=== PATIENT | male | born 1945 | race Caucasian/White ===

== ENCOUNTER 2017-11-30 10:22 | Outpatient (CLI) | payer MEDICARE ==
[2017-11-30 11:12] LABS: #Basophils 0.1 thou/uL (0.0-0.2); #Eosinphils 0.2 thou/uL (0.0-0.7); #Lymphocytes 1.2 thou/uL (1.20-3.40); #Monocytes 0.8 thou/uL (0.11-0.59); #Neutrophils 4.8 thou/uL (1.40-6.50); %Basophils 1.2 % (0.0-1.0); %Eosinophils 2.6 % (0.0-10.0); %Lymphocytes 17.4 % (21.0-51.0); %Monocytes 10.8 % (0.0-10.0); Hemoglobin 15.9 g/dL (14.0-18.0); Mean Corpuscular Hemoglobin 33.5 pg (27.0-31.0); Mean Platelet Volume 7.6 fL (7.4-10.4); Platelet Count 177 thou/uL (130-400); RBC Distribution Width 12.7 % (11.5-14.5); Red Blood Cell (RBC) Count 4.76 mill/uL (4.70-6.10)
[2017-11-30 11:39] LABS: Anion Gap 14 mmol/L (10-20); BUN (Urea Nitrogen) 15 mg/dL (8.4-25.7); Calc. Creatinine Clearance 0 mL/min (70-130); Calcium 9.8 mg/dL (7.8-10.44); Carbon Dioxide 25 mmol/L (23-31); Chloride 102 mmol/L (98-107); Estimated GFR-MDRD 85; Glucose 140 mg/dL (80-115); Sodium 137 mmol/L (136-145)
--- NOTE | 2017-12-02 08:32 | EKG ---
Test Reason : Blood Pressure : / mmHG Vent. Rate : 058 BPM Atrial Rate : 058 BPM P-R Int : 190 ms QRS Dur : 104 ms QT Int : 404 ms P-R-T Axes : 052 -21 023 degrees QTc Int : 396 ms Sinus bradycardia Otherwise normal ECG When compared with ECG of 15-JUN-2015 11:07, No significant change was found Confirmed by TANVI KERR ([id number]) on 12/02/2017 8:31:46 AM Referred By: JOANA Confirmed By:TANVI KERR
== END 2017-11-30 10:23 | disposition home or self-care (01) ==
LOC: LABBT 10:22
PROVIDERS: ATTEND Orthopaedic Surgery
DX: Z01.818 Encounter for other preprocedural examination (principal); M75.102 Unspecified rotator cuff tear or rupture of left shoulder, not specified as traumatic
CPT/HCPCS: 80048; 85025; 93005; 93010

== ENCOUNTER 2017-12-01 07:18 | Day surgery (SDC) | payer MEDICARE ==
[2017-11-30 10:40] VITALS: BMI 35.9
[2017-12-01] MEDS ORDERED: CEFAZOLIN/Water 2 GM/20 ML SYRINGE ONE (07:40)
[2017-12-01] MEDS ORDERED: Midazolam HCl 2 mg/2 ml Vial ONE (08:50)
[2017-12-01] MEDS ORDERED: Fentanyl 100 MCG/2 ML VIAL ONE (08:51)
[2017-12-01] MEDS ORDERED: HYDROcodone/Acetaminophen 5/325 mg Tablet PO PRN ×2 (09:11)
[2017-12-01] MEDS ORDERED: Ondansetron HCl/PF 4 MG/2 ML Vial IVP PRN (09:11)
[2017-12-01] MEDS ORDERED: Promethazine HCl 25 MG/ML VIAL IM PRN (09:11)
[2017-12-01] MEDS ORDERED: Ropivacaine 0.2% 550 ML 550 ML NERVE BLCK SCH (09:11)
[2017-12-01] MEDS ORDERED: Zolpidem Tartrate 5 MG TAB PO PRN (09:11)
[2017-12-01] MEDS ORDERED: Ketorolac Tromethamine 30 MG/ML VIAL IVP PRN (09:11)
[2017-12-01] MEDS ORDERED: traMADol HCl 50 MG TAB PO PRN ×2 (09:11)
[2017-12-01] MEDS ORDERED: Fentanyl 100 MCG/2 ML VIAL IV PRN (09:12)
[2017-12-01] MEDS ORDERED: Lidocaine 2% Jelly 5 ML TUBE ONE (10:01)
[2017-12-01] MEDS ORDERED: Bupivacaine/Epinephrine 0.25% 30 ML VIAL ONE (10:07)
[2017-12-01] MEDS ORDERED: Bupivacaine HCl 0.5%/Epinephrine 1:200,000/PF 30 ml Vial ONE (10:14)
[2017-12-01] MEDS ORDERED: Ropivacaine 0.5% HCl/PF (150 MG/30 ML VIAL) ONE (10:14)
[2017-12-01] MEDS ORDERED: Ropivacaine 0.2% HCl/PF (40 MG/20 ML VIAL) ONE (10:14)
--- NOTE | 2017-12-01 12:58 | OP ---
DATE OF PROCEDURE: 12/01/2017 PREOPERATIVE DIAGNOSIS: Left shoulder impingement with a partial rotator cuff tear. POSTOPERATIVE DIAGNOSES: 1. 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 2. Circumferential degenerative labral tear. 3. Significant intratendinous tearing of the biceps tendon as well as biceps tendinosis and instabil ity on the superior labrum. 4. Complex massive tear of the rotator cuff to include portions of the supra and infraspinatus. The se tears were longitudinal and had significant delamination such that it almost looked as if sharp cl vitaly had right across the top of the rotator cuff and and into multi-levels and multiple str ips. SURGERY PERFORMED: 1. Left shoulder arthroscopy with debridement of circumferential labral tear as well as any loose ch ondral surfaces of the glenohumeral joint. 2. Arthroscopic biceps tenotomy. 3. Arthroscopic rotator cuff repair. SURGEON: Mauro Frederick M.D. SYSTEMS DESIGN ENGINEER: None. BLOOD LOSS: Minimal. COMPLICATIONS: None. ANESTHETIC: The patient did have general anesthetic. He also had a preoperative block. CONDITION: He went to the recovery room in stable condition. IMPLANTS: Triple loaded titanium rotator cuff anchor as well as multiple sutures that were placed in a [id number] fashion. INDICATIONS: This is a 71-year-old male who has been having problems with his left shoulder for a nu mber of months and he has failed nonoperative treatment. At this time, he opted to have surgery. DESCRIPTION OF PROCEDURE: After all appropriate consent forms were explained and signed, he was take n back to the operating room and at this time was given a general anesthetic. Once local anesthesia was appropriate, the patient was rolled into the right lateral decubitus position with all bony promi nences well-padded. Axillary roll was placed underneath the right axilla and the dixon bag was inflat ed to hold him in this position. The arm was suspended with 15 pounds in standard arthroscopic fashi on. At this time, the left shoulder and upper extremity prepped and draped in the standard surgical fashion. Bony anatomic landmarks were drawn out and the subacromial space was infiltrated with Vida ine with epinephrine. Posterior portal was established and the scope was placed into the shoulder chivo int. Anterior working portal was made using a needle localization technique. Diagnostic arthroscopy commenced in the glenohumeral joint and at this time, literally looked like a bomb had gone off insi de the joint as there was circumferential labral tearing. There was some degenerative cartilage on t he glenohumeral joint surfaces. The biceps tendon had multiple tears of the tendon itself as well as degeneration in its insertion site and the rotator cuff was found to be abnormal. Shaver was introd uced, labrum was debrided. Loose cartilage was debrided. The biceps was debrided and unfortunately the biceps tearing went from its insertion, all the way down towards the exit of the shoulder and I f elt at this time this would not be appropriate for tenodesis, but rather tenotomy. Tenotomy was perf ormed using the surface energy probe. At this time, we then repositioned the scope into the subacrom ial space. Copious bursal tissue was removed. No bony decompression was done. No CA ligament was t aken down. At this time, we debrided the cuff to try and get back to good tissue. Again, this was a very complex in nature, it almost looked like sharp blade had been right across the rotator cuff mul tiple times and at this time, once we got to good tissue, we decided we are try and repair whatever w e could starting with some medial side to side sutures. As these were being placed and tied, we were able to note more of a normal appearance of the rotator cuff and then we noted posteriorly, the tend on was torn off the bone so one triple loaded anchor was placed into the bone and these sutures were ran through the rotator cuff and tied in simple fashion. At this time, it really gave us a pretty de cent rotator cuff repair with complete closure of the rotator cuff over top of the humeral head. At this time, the shoulder scope was removed, shoulder was drained. Each portal was closed with simple nylon stitch. At this time, a bulky sterile dressing was applied. The patient was then rolled out o f this position onto a recovery room bed, was extubated and taken to the recovery room in stable cond ition. All counts were correct at the end of the case and he did receive preoperative IV antibiotics .
[2017-12-01] MEDS ORDERED: Succinylcholine Chloride 20 MG/ML 10 ml SYRINGE FS ONE (14:35)
[2017-12-01] MEDS ORDERED: Glycopyrrolate 0.2 MG/ML 5 ML SYRINGE ONE (14:35)
[2017-12-01] MEDS ORDERED: Dexamethasone 20 MG/5 ML VIAL ONE (14:35)
[2017-12-01] MEDS ORDERED: Ondansetron HCl/PF 4 MG/2 ML Vial ONE (14:35)
[2017-12-01] MEDS ORDERED: PROPOFOL 200 MG/20 ML VIAL ONE (14:35)
== END 2017-12-01 15:09 | disposition home or self-care (01) ==
LOC: SDC 07:18
PROVIDERS: ATTEND Orthopaedic Surgery
PROC: 0LQ24ZZ Repair Left Shoulder Tendon, Percutaneous Endoscopic Approach (ICD-10-PCS; principal; 2017-12-01)
PROC: 0RHK44Z Insertion of Internal Fixation Device into Left Shoulder Joint, Percutaneous Endoscopic Approach (ICD-10-PCS; 2017-12-01)
DX: M75.112 Incomplete rotator cuff tear or rupture of left shoulder, not specified as traumatic (principal); M75.42 Impingement syndrome of left shoulder; M75.22 Bicipital tendinitis, left shoulder; M94.212 Chondromalacia, left shoulder; S46.112A Strain of muscle, fascia and tendon of long head of biceps, left arm, initial encounter; S43.492A Other sprain of left shoulder joint, initial encounter; E11.42 Type 2 diabetes mellitus with diabetic polyneuropathy; I10 Essential (primary) hypertension; E78.00 Pure hypercholesterolemia, unspecified; N52.9 Male erectile dysfunction, unspecified; G47.00 Insomnia, unspecified; J45.909 Unspecified asthma, uncomplicated; Z79.84 Long term (current) use of oral hypoglycemic drugs; Z79.899 Other long term (current) drug therapy; Z88.5 Allergy status to narcotic agent
CPT/HCPCS: 29827; 97139; A4306; C1713; J0670; J1100; J2250; J2405; J2704; J2795; J3010